=== PATIENT | female | born 2000 | race Caucasian/White ===

== ENCOUNTER 2018-10-12 17:17 | Emergency (ER) | payer SELFPAY, OTHER | END 2018-10-12 19:00 | disposition left against medical advice (07) | LOC: E/R 17:17 | DX: Z53.21 Procedure and treatment not carried out due to patient leaving prior to being seen by health care provider (principal) ==

== ENCOUNTER 2019-02-14 15:09 | Emergency (ER) | payer OTHER | END 2019-02-14 21:16 | disposition home or self-care (01) | LOC: FTE 15:09 | DX: F41.9 Anxiety disorder, unspecified (principal); R07.89 Other chest pain | CPT/HCPCS: 71045; 93005; 99283-25 ==